=== PATIENT | female | born 1935 | race Caucasian/White ===

== ENCOUNTER 2017-02-03 13:49 | Emergency (ER) | payer MEDICARE, MEDICAID ==
[~2017-02-03] VITALS: Ht 157.5 cm; Wt 40.8 kg
[2017-02-03 13:52] VITALS: BP 111/66
--- NOTE | 2017-02-03 14:26 | Emergency Room Report ---
History of Present Illness General Chief Complaint: Wound Recheck/Suture Removal Source: Patient, Family Member Present Illness HPI 81 YO Female Pt. presents to the ED c/o sutures placed in the chin that need to be removed s/p wound closure 1 week. ago. pt was seen at [facility] for initial injury. Patient had imaging performed at [facility]. Denies nausea, vomiting, erythema, tenderness, and bleeding or discharge from the wound. Denies rashes. Allergies: Coded Allergies: PENICILLINS (Verified Allergy, Unknown, 02/03/17) Patient History Past Medical History: see triage record Past Surgical History: none Pertinent Family History: none Now: No Immunizations: UTD Reviewed Nursing Documentation: PMH: Agreed, PSxH: Agreed Nursing Documentation-PMH Past Medical History: No Stated History Review of Systems All Other Systems: negative except mentioned in HPI Physical Exam Vital Signs Date Time Temp Pulse Resp B/P (MAP) Pulse Ox O2 Delivery O2 Flow Rate FiO2 02/03/17 13:52 97.3 73 18 111/66 99 Room Air Sp02 EP Interpretation: reviewed, normal General Appearance: no apparent distress, alert, GCS 15, non-toxic Head: normocephalic, other - ecchymosis to the left side of chin and jawline. healing/resolving Eyes: bilateral eye normal inspection, bilateral eye PERRL ENT: hearing grossly normal, normal voice Neck: full range of motion Respiratory: lungs clear, normal breath sounds, speaking full sentences Cardiovascular #1: regular rate, rhythm Musculoskeletal: back normal, gait/station normal, normal range of motion, non- tender Neurologic: alert, oriented x3, responsive, motor strength/tone normal, sensory intact, speech normal Psychiatric: judgement/insight normal, memory normal, mood/affect normal Skin: normal color, no rash, warm/dry, well hydrated, wd healing/no infection noted - chin with [address] Medical Decision Making PA Attestation Dr. Shane is my supervising Physician whom patient management has been discussed with. Diagnostic Impression: Primary Impression: Encounter for removal of sutures ER Course 81 YO Female Pt. presents to the ED c/o sutures placed in the chin that need to be removed s/p wound closure 1 week. ago. pt was seen at [facility] for initial injury. Patient had imaging performed at [facility]. Denies nausea, vomiting, erythema, tenderness, and bleeding or discharge from the wound. Denies rashes. Ddx considered but are not limited to laceration, tendon injury, cellulitis, dehiscence. Vital signs: are WNL, pt. is afebrile H&PE are most consistent with: healed laceration of the chin ORDERS: none required at this time, the diagnosis is clinical ED INTERVENTIONS: - 5 Sutures removed. -Bacitracin is applied. DISCHARGE: At this time pt. is stable for d/c to home. Will provide printed patient care instructions, and any necessary prescriptions. Care plan and follow up instructions have been discussed with the patient prior to discharge. Last Vital Signs Date Time Temp Pulse Resp B/P (MAP) Pulse Ox O2 Delivery O2 Flow Rate FiO2 02/03/17 13:52 97.3 73 18 111/66 99 Room Air Disposition: HOME, SELF-CARE Condition: Stable Scripts Arnica (ARNICA) 120 Ml Tincture 1 APPLIC TP BID, #120 ML Prov: Rafaela Gan 02/03/17 Bacitracin/Polymyxin B Sulfate (BACITRACIN-POLYMYXIN OINTMENT) 28.35 Gm Oint...g. 1 APPLIC TP BID, #28.3 GM Prov: Rafaela Gan 02/03/17 Emollient Combination No.46 (MEDERMA) 20 Gm Cream..g. 1 APPLIC TP BID, #20 GM Prov: Rafaela Gan. 02/03/17 Patient Instructions: Suture Removal, Care After Additional Instructions: Take medications as directed. Follow up with a Primary Care Provider in 3-5 days, even if your symptoms have resolved. --Please review list of primary care clinics, if you do not already have a primary care provider Return sooner to ED if new symptoms occur, or current symptoms become worse. - Please note that this Emergency Department Report was dictated using [employer] observer technology software, occasionally this can lead to erroneous entry secondary to interpretation by the dictation equipment. Rafaela Gan Feb 03, 2017 14:26
[2017-02-03] MEDS ORDERED: MEDERMA20 GM TP (14:28)
[2017-02-03] MEDS ORDERED: BACITRACIN-P28.35 GM TP (14:28)
[2017-02-03] MEDS ORDERED: ARNICA120 ML TP (14:28)
[2017-02-03] MEDS ORDERED: Bacitracin Oint UD TOPIC ONE (14:45)
[2017-02-03 14:51] VITALS: BP 111/66
== END 2017-02-03 14:54 | disposition home or self-care (01) ==
LOC: EMR 14:20
DX: Z48.02 Encounter for removal of sutures (principal); S00.83XD Contusion of other part of head, subsequent encounter; X58.XXXD Exposure to other specified factors, subsequent encounter; Z88.0 Allergy status to penicillin
CPT/HCPCS: 99282